=== PATIENT | female | born 1995 ===

== ENCOUNTER 2024-07-13 03:40 | Inpatient (IN) | payer BC ==
[2024-07-13] MEDS ORDERED: Propofol 200 MG/20 ML SDV ONE (04:06)
[2024-07-13] MEDS: ceFAZolin 2 GM in Sodium Chloride 0.9% 50 ML IV ONE (04:09)
[2024-07-13] MEDS ORDERED: fentaNYL 100 MCG/2 ML SDV ONE ×6 (04:14→05:32)
[2024-07-13] MEDS ORDERED: Azithromycin 500 MG Vial ONE ×2 (04:15→04:31)
[2024-07-13] MEDS: Azithromycin 500 MG in Sodium Chloride 0.9% 250 ML IV ONE (04:20)
[2024-07-13] MEDS ORDERED: Rocuronium Bromide 50 MG/5 ML Syringe ONE (04:31)
[2024-07-13] MEDS ORDERED: Succinylcholine/Sod PF 100 MG/5 ML SYRINGE IV ONE (04:31)
[2024-07-13] MEDS ORDERED: Ondansetron 4 MG/2 ML SDV ONE ×2 (04:31)
[2024-07-13] MEDS ORDERED: Sugammadex Sodium 200 MG/2 ML VIAL IV ONE (04:31)
[2024-07-13] MEDS ORDERED: Metoclopramide 10 MG/2 ML SDV ONE (04:31)
[2024-07-13] MEDS ORDERED: Tranexamic Acid 1,000 MG/10 ML Vial ONE (04:32)
[2024-07-13] MEDS ORDERED: Sodium Chloride 0.9% 2.5 ML Syringe FLUSH PRN (04:32)
[2024-07-13] MEDS ORDERED: Sodium Chloride 0.9% 20 ML SDV IV PRN (04:32)
[2024-07-13] MEDS ORDERED: Oxytocin 10 Units/1 ML SDV ONE ×4 (04:32)
[2024-07-13] MEDS ORDERED: Sodium Chloride 0.9% 10 ML Syringe FLUSH PRN (04:32)
[2024-07-13] MEDS ORDERED: HYDROmorphone 2 MG/ML Syringe ONE (04:37)
[2024-07-13] MEDS ORDERED: Lactated Ringers 1,000 ML IV SCH (04:45)
[2024-07-13] MEDS ORDERED: Oxytocin/0.9 % Sodium Chloride 30 UNIT/500 ML BAG IV SCH (04:45)
[2024-07-13] MEDS ORDERED: Morphine PF 10 MG/10 ML SDV ONE (04:45)
[2024-07-13] MEDS ORDERED: Ropivacaine 0.5% 5 MG/ML 30 ML SDV ONE (04:45)
[2024-07-13 04:47] LABS: HEMOGLOBIN 11.2 g/dL (12.0-16.0); MEAN CORPUSCULAR HEMOGLOBIN 30.9 pg (28.0-32.0); MEAN CORPUSCULAR HGB CONC 33.9 g/dL (32.0-36.0); MEAN CORPUSCULAR VOLUME 90.9 fL (83.0-99.0); MEAN PLATELET VOLUME 11.4 fL (9.4-12.3); PLATELET COUNT,PLT 174 K/uL (150-400); RED BLOOD CELL COUNT 3.63 M/uL (4.10-5.30); WHITE BLOOD CELL COUNT,WBC 12.91 K/uL (3.9-11.3)
[2024-07-13 05:12] LABS: A/G RATIO 0.8 (0.9-1.6); ALBUMIN 2.7 g/dL (3.4-5.0); BILIRUBIN TOTAL 0.2 mg/dL (0.2-1.0); CALCIUM 8.3 mg/dL (8.5-10.1); CARBON DIOXIDE,CO2 22.2 mmol/L (21.0-32.0); CREATININE 0.6 mg/dL (0.6-1.0); EST CRCL DRUG DOSING (CG) 142.07 mL/min; POTASSIUM,K 3.6 mmol/L (3.5-5.1); PROTEIN TOTAL,TP 6.1 g/dL (6.4-8.2)
[2024-07-13] MEDS ORDERED: diphenhydrAMINE 50 MG/ML SDV IVPUSH PRN (05:16)
[2024-07-13] MEDS ORDERED: Methylergonovine 0.2 MG/1 ML Amp IM PRN (05:16)
[2024-07-13] MEDS ORDERED: Misoprostol 200 MCG Tab RECTAL PRN (05:16)
[2024-07-13] MEDS ORDERED: Acetaminophen/oxyCODONE 325-5 MG Tab PO PRN (05:16)
[2024-07-13] MEDS ORDERED: Oxytocin 10 Units/1 ML SDV IM PRN (05:16)
[2024-07-13] MEDS ORDERED: Bisacodyl 10 MG Supp RECTAL PRN (05:16)
[2024-07-13] MEDS ORDERED: Naloxone 0.4 MG/ML SDV IVPUSH PRN ×2 (05:23→05:29)
[2024-07-13] MEDS ORDERED: Albuterol 0.083% 2.5 MG/3 ML Neb Soln NEB PRN (05:29)
[2024-07-13] MEDS ORDERED: Metoclopramide 10 MG/2 ML SDV IVPUSH PRN (05:29)
[2024-07-13] MEDS ORDERED: HYDROmorphone 1 MG/ML Syringe IVPUSH PRN (05:29)
[2024-07-13] MEDS ORDERED: Phenylephrine HCl In 0.9% NaCl 1 MG/10 ML Syringe IVPUSH PRN (05:29)
[2024-07-13] MEDS ORDERED: Ondansetron 4 MG/2 ML SDV IVPUSH PRN (05:29)
[2024-07-13] MEDS ORDERED: fentaNYL 50 MCG/ML SDV IVPUSH PRN (05:29)
[2024-07-13] MEDS ORDERED: HYDROmorphone/Normal Saline 10 MG/50 ML PCA IV SCH (05:30)
[2024-07-13 05:42] LABS: CREATININE,URINE RAND 100.4 mg/dL; PROTEIN CREATININE RATIO,URINE 0.4; PROTEIN,URINE RANDOM 37.5 mg/dL (<11.9)
[2024-07-13] MEDS: Lactated Ringers 1,000 ML IV SCH (06:11)
[2024-07-13 06:15] LABS: INR 0.94 (0.86-1.11)
[2024-07-13] MEDS: Morphine 2 MG/ML SYRINGE IVPUSH PRN (06:25)
[2024-07-13] MEDS: Ketorolac 30 MG/ML SDV IVPUSH SCH (06:29)
[2024-07-13] MEDS: Ondansetron 4 MG/2 ML SDV IVPUSH PRN (07:33)
[2024-07-13] MEDS ORDERED: Acetaminophen 1,000 MG in Premix Bag 1 BAG IV PRN (10:30)
[2024-07-13] MEDS: ceFAZolin 2 GM in Sodium Chloride 0.9% 50 ML IV SCH (11:42)
[2024-07-13] MEDS: Docusate Sodium 100 MG Cap PO SCH (12:12)
[2024-07-13] MEDS ORDERED: ceFAZolin 2 GM Vial IV ONE (12:40)
[2024-07-13] MEDS ORDERED: Dexamethasone 4 MG/ML 5 ML MDV IVPUSH ONE (12:40)
[2024-07-13] MEDS: Acetaminophen/oxyCODONE 325-5 MG Tab PO PRN (13:14)
[2024-07-13] MEDS: Lanolin 100% Cream 7 GM Tube TOP PRN (15:40)
[2024-07-13] MEDS: Citric Acid/Sodium Citrate Solution 30 ML Cup PO ONE (23:27)
[2024-07-14 06:49] LABS: HEMOGLOBIN 9.3 g/dL (12.0-16.0)
[2024-07-14] MEDS: Ibuprofen 800 MG Tab PO PRN (08:40)
[2024-07-14] MEDS: ceFAZolin 2 GM in Sodium Chloride 0.9% 50 ML IV SCH (08:41)
[2024-07-14] MEDS: Simethicone 80 MG Tab.Chew PO PRN (17:00)
== END 2024-07-15 14:10 | disposition home or self-care (01) | DRG 540 ==
LOC: MW.OB 03:40 → MW.OBCHECK 03:40 → MW.OB 04:10 → MW.OBCHECK 04:11 → OBSVTOIN 04:32 → MW.OB 16:37
PROVIDERS: ADMIT Obstetrics & Gynecology; ATTEND Obstetrics & Gynecology
PROC: 10D00Z1 Extraction of Products of Conception, Low, Open Approach (ICD-10-PCS; principal; 2024-07-13 04:39)
DX: O48.0 Post-term pregnancy (principal); O99.214 Obesity complicating childbirth; E66.812 Obesity, class 2; O14.04 Mild to moderate pre-eclampsia, complicating childbirth; O76 Abnormality in fetal heart rate and rhythm complicating labor and delivery; O77.0 Labor and delivery complicated by meconium in amniotic fluid; Z3A.40 40 weeks gestation of pregnancy; Z37.0 Single live birth
CPT/HCPCS: 01961; 36415; 51702; 59025; 59514; 64999; 74018; 74018-26; 80053; 82570; 83615; 84156; 85014; 85018; 85027; 85384; 85610; 85730; 86592; 86850; 86900; 86901; A9270-GY; J0131; J0330; J0456; J0690; J1100; J1171; J1885; J2270; J2274; J2405; J2590; J2704; J2765; J2795; J3010; J3490; J7050; J7120